=== PATIENT | male | born 1985 | race Caucasian/White ===

== ENCOUNTER → 2017-10-04 | Emergency (ER) | payer OTHER ==
[~2017-10-04] VITALS: Ht 180.3 cm; Wt 43.1 kg
[~2017-10-04] MED LIST: MEDROLPACK PO; NORFLEX100MG PO; TUSSI PRES-B L120 M1 PO; ZITHROMAX TRI-500 MG PO
== END | disposition home or self-care (01) ==
LOC: ER 08:23
DX: J45.998 Other asthma (principal); M54.89 Other dorsalgia; B34.9 Viral infection, unspecified

== ENCOUNTER 2018-02-23 16:10 | Inpatient (IN) | payer OTHER ==
[~2018-02-23] VITALS: Ht 180.3 cm; Wt 87.1 kg
[2018-03-01] MEDS ORDERED: LORATADINE10 MG PO (11:09)
[2018-03-01] MEDS ORDERED: TUSSI PRES-B L120 M1 PO (11:09)
[2018-03-01] MEDS ORDERED: MEDROLPACK PO (11:10)
[2018-03-01] MEDS ORDERED: FLOVENT DISKU100 MCG IH (11:11)
[2018-03-01] MEDS ORDERED: LEVAQUIN750 MG PO (11:11)
[2018-03-01] MEDS ORDERED: ALBUTEROL1.25 MG/3 IH (11:12)
[2018-03-01] MEDS ORDERED: MUCINEX600 MG PO (11:12)
[2018-03-01] MEDS ORDERED: ZANTAC150 MG PO (11:16)
== END 2018-03-01 11:41 | disposition home or self-care (01) | DRG 203 ==
LOC: ER 16:10 → SEC-K 02-24 10:32 → MEDJ 02-24 10:32
PROC: 3E0F7GC Introduction of Other Therapeutic Substance into Respiratory Tract, Via Natural or Artificial Opening (ICD-10-PCS; principal; 2018-02-24)
PROC: 4A033R1 Measurement of Arterial Saturation, Peripheral, Percutaneous Approach (ICD-10-PCS; 2018-02-24)
PROC: 8E0ZXY6 Isolation (ICD-10-PCS; 2018-02-24)
DX: J45.41 Moderate persistent asthma with (acute) exacerbation (principal); J10.1 Influenza due to other identified influenza virus with other respiratory manifestations; R09.02 Hypoxemia; B95.3 Streptococcus pneumoniae as the cause of diseases classified elsewhere